=== PATIENT | male | born 1950 | race Caucasian/White ===

== ENCOUNTER → 2020-08-08 | Outpatient (CLI) | payer MEDICARE, OTHER ==
[2020-08-08 12:50] LABS: BUN/CREATININE RATIO 19 (0-10)
== END ==
LOC: LAB 11:51
PROVIDERS: Internal Medicine Nephrology
DX: N18.30 Chronic kidney disease, stage 3 unspecified (principal); M10.9 Gout, unspecified
CPT/HCPCS: 36415; 80053; 82570; 84156; 84550

== ENCOUNTER → 2020-11-21 | Outpatient (CLI) | payer MEDICARE, OTHER ==
[2020-11-21 11:50] LABS: BUN/CREATININE RATIO 28 (0-10)
== END ==
LOC: LAB 10:34
PROVIDERS: Internal Medicine Nephrology
DX: N18.30 Chronic kidney disease, stage 3 unspecified (principal); M10.9 Gout, unspecified
CPT/HCPCS: 80053; 82570; 84156; 84550